=== PATIENT | female | born 1930 | race Caucasian/White ===

== ENCOUNTER 2018-01-14 11:50 | Emergency (ER) | payer OTHER ==
[2018-01-14] MEDS ORDERED: BENZONATATE 100 MG CAP PO ONE (12:36)
[2018-01-14 12:49] LABS: Absolute Lymphocytes (CBC) 0.8 K/uL (0.7-4.9); Absolute Monocytes 1.2 K/uL (0.1-1.3); Absolute Neutrophil 6.5 K/uL (1.8-8.0); Basophils % 0.1 % (0-1.3); Eosinophils % 1.1 % (0-4.4); Hematocrit 33.9 % (36.0-45.0); Lymphocytes % 9.4 % (15.3-44.8); MCH 30.9 pg (27.0-35.0); Monocytes % 13.5 % (3.3-12.3)
[2018-01-14 13:04] LABS: Potassium 3.8 mmol/L (3.5-5.1)
--- NOTE | 2018-01-14 14:13 | ER ---
Nurse's Notes [facility] Name: Virgen Smith Age: 87 yrs Sex: Female : 1930 Arrival Date: 01/14/2018 Time: 11:55 Bed 16 Private MD: Candy العراقي C Diagnosis: Bronchitis, not specified as acute or chronic;Cough;Acute upper respiratory infection, unspecified Presentation: 01/14 12:01 Presenting complaint: Patient states: She drank some eliseo beer on Monday and after aj1 that he throat started to feel hoarse and the next day she started coughing and it has gotten worse every day since. Reports productive cough with green sputum. Denies fever. Denies SOB. Transition of care: patient was not received from another setting of care. Onset of symptoms was December 2017. Risk Assessment: Do you want to hurt yourself or someone else? Patient reports no desire to harm self or others. Initial Sepsis Screen: Does the patient meet any 2 criteria? No. Patient's initial sepsis screen is negative. Does the patient have a suspected source of infection? No. Patient's initial sepsis screen is negative. Care prior to arrival: None. 12:01 Method Of Arrival: Ambulatory aj1 12:01 Acuity: SERGEY 4 aj1 Triage Assessment: 12:06 General: Appears in no apparent distress. comfortable, Behavior is calm, cooperative, aj1 appropriate for age. Pain: Denies pain. Neuro: Level of Consciousness is awake, alert, obeys commands. Cardiovascular: Patient's skin is warm and dry. Respiratory: Airway is patent Respiratory effort is even, unlabored, Respiratory pattern is regular, symmetrical. Historical: - Allergies: 12:10 Sulfa (Sulfonamide Antibiotics); rb1 12:10 PENICILLINS; rb1 12:10 azithromycin; rb1 - Home Meds: 12:06 atorvastatin 10 mg oral tab 1 tab once daily [Active]; gabapentin 100 mg oral cap 3 aj1 caps 3 times per day [Active]; valsartan-hydrochlorothiazide 160-12.5 mg oral tab 1 tab once daily [Active]; metoprolol succinate 50 mg oral Tb24 1 tab once daily [Active]; ibandronate 150 mg oral tab 1 tab [Active]; baclofen 10 mg Oral tab 1 tab [Active]; - PMHx: 12:06 Hypertension; Hyperlipidemia; nerve pain; aj1 - Immunization history:: Flu vaccine is up to date. - Social history:: Smoking status: Patient/guardian denies using tobacco. - Ebola Screening: : Patient denies travel to an Ebola-affected area in the 21 days before illness onset. Screenin:15 Abuse screen: Denies threats or abuse. Nutritional screening: No deficits noted. rb1 Tuberculosis screening: No symptoms or risk factors identified. Fall Risk None identified. Assessment: 12:15 General: Appears uncomfortable, Behavior is calm, cooperative, Reports feeling ill for rb1 fatigue for Denies fever. Pain: Denies pain. Neuro: Level of Consciousness is awake, alert, obeys commands, Oriented to person, place, time, situation. Cardiovascular: Capillary refill < 3 seconds is brisk in bilateral fingers. Respiratory: Reports cough that is productive, since green sputum Airway is patent Respiratory effort is even, unlabored, Respiratory pattern is regular, symmetrical. GI: No signs and/or symptoms were reported involving the gastrointestinal system. : No signs and/or symptoms were reported regarding the genitourinary system. Derm: Skin is pink, warm \T\ dry. Musculoskeletal: Range of motion: intact in all extremities. 13:08 Reassessment: Patient appears in no apparent distress at this time. No changes from rb1 previously documented assessment. X-ray is at bedside. 14:05 Reassessment: Patient appears in no apparent distress at this time. Patient and/or rb1 family updated on plan of care and expected duration. Pain level reassessed. Patient is alert, oriented x 3, equal unlabored respirations, skin warm/dry/pink. Vital Signs: 12:06 BP 174 / 78; Pulse 82; Resp 20; Temp 97.6; Pulse Ox 97% on R/A; Weight 62.14 kg (R); aj1 Height 4 ft. 11 in. (149.86 cm) (R); Pain 0/10; 13:00 BP 142 / 86; Pulse 73; Resp 19; Pulse Ox 95% on R/A; rb1 14:50 BP 160 / 70; Pulse 76; Resp 19; Pulse Ox 96% on R/A; rb1 12:06 Body Mass Index 27.67 (62.14 kg, 149.86 cm) aj ED Course: 11:55 Patient arrived in ED. mr 11:55 Candy العراقي MD is Private Physician. mr 12:03 Triage completed. aj1 12:06 Arm band placed on Patient placed in an exam room. aj1 12:10 Bladimir Dinh MD is Attending Physician. kdr 12:15 Patient has correct armband on for positive identification. Bed in low position. Call rb1 light in reach. Side rails up X 1. Pulse ox on. NIBP on. Warm blanket given. 12:16 Harika Ariaza, ERIC is Primary Nurse. rb1 12:40 Inserted saline lock: 22 gauge in left antecubital area, using aseptic technique. Blood rb1 collected. 13:42 X-ray completed. Portable x-ray completed in exam room. Patient tolerated procedure tm4 well. 13:44 CXR XRAY In Process Unspecified. EDMS 14:11 Candy العراقي MD is Referral Physician. kdr 14:50 No provider procedures requiring assistance completed. IV discontinued, intact, rb1 bleeding controlled, No redness/swelling at site. Pressure dressing applied. Administered Medications: 12:30 Drug: Tessalon Perle 200 mg Route: PO; rb1 13:00 Follow up: Response: No adverse reaction rb1 14:37 Drug: LevaQUIN 500 mg Route: PO; rb1 14:50 Follow up: Response: No adverse reaction rb1 Outcome: 14:12 Discharge ordered by MD. kdr 14:50 Patient left the ED. rb1 14:50 Discharged to home ambulatory. rb1 14:50 Condition: stable 14:50 Discharge instructions given to patient, Instructed on discharge instructions, follow up and referral plans. medication usage, Demonstrated understanding of instructions, follow-up care, medications, Prescriptions given X 2. Signatures: Dispatcher [employer] EDWI Lynn Giang RN RN aj1 Bladimir Dinh MD MD [facility] Kristal Ponce tm4 Harika Araiza, RN RN rb1 Corrections: (The following items were deleted from the chart) 12:53 12:06 Allergies: NKDA; aj1 rb1 15:00 14:59 Patient left the ED. rb1 rb1
--- NOTE | 2018-01-14 14:13 | EDPHYS ---
Physician Documentation [facility] Name: Virgen Smith Age: 87 yrs Sex: Female : 1930 Arrival Date: 01/14/2018 Time: 11:55 Bed 16 Private MD: Candy العراقي C ED Physician Bladimir Dinh HPI: 01/14 15:21 This 87 yrs old Female presents to ER via Ambulatory with complaints of Cough.kdr 15:21 The patient or guardian reports cough, that is intermittent, described as mild, with kdr productive sputum, that is green. Onset: The symptoms/episode began/occurred gradually, Began Monday. Severity of symptoms: At their worst the symptoms were mild, moderate, just prior to arrival, in the emergency department the symptoms are actually worse. Modifying factors: The symptoms are alleviated by nothing, the symptoms are aggravated by. 15:25 Associated signs and symptoms: The patient has no apparent associated signs or kdr symptoms, Pertinent negatives: fever, nausea, sore throat, vomiting. The patient has not experienced similar symptoms in the past. The patient has not recently seen a physician. Historical: - Allergies: 12:10 Sulfa (Sulfonamide Antibiotics); rb1 12:10 PENICILLINS; rb1 12:10 azithromycin; rb1 - Home Meds: 12:06 atorvastatin 10 mg oral tab 1 tab once daily [Active]; gabapentin 100 mg oral cap 3 aj1 caps 3 times per day [Active]; valsartan-hydrochlorothiazide 160-12.5 mg oral tab 1 tab once daily [Active]; metoprolol succinate 50 mg oral Tb24 1 tab once daily [Active]; ibandronate 150 mg oral tab 1 tab [Active]; baclofen 10 mg Oral tab 1 tab [Active]; - PMHx: 12:06 Hypertension; Hyperlipidemia; nerve pain; aj1 - Immunization history:: Flu vaccine is up to date. - Social history:: Smoking status: Patient/guardian denies using tobacco. - Ebola Screening: : Patient denies travel to an Ebola-affected area in the 21 days before illness onset. ROS: 15:25 Constitutional: Negative for fever, chills, and weight loss, Eyes: Negative for injury, kdr pain, redness, and discharge, Neck: Negative for injury, pain, and swelling, Cardiovascular: Negative for chest pain, palpitations, and edema, Abdomen/GI: Negative for abdominal pain, nausea, vomiting, diarrhea, and constipation, Back: Negative for injury and pain, : Negative for injury, bleeding, discharge, and swelling, MS/Extremity: Negative for injury and deformity, Skin: Negative for injury, rash, and discoloration, Neuro: Negative for headache, weakness, numbness, tingling, and seizure activity. Psych: Negative for depression, anxiety, suicide ideation, homicidal ideation, and hallucinations, Allergy/Immunology: Negative for hives, rash, and allergies, Endocrine: Negative for neck swelling, polydipsia, polyuria, polyphagia, and marked weight changes, Hematologic/Lymphatic: Negative for swollen nodes, abnormal bleeding, and unusual bruising. 15:25 Respiratory: Positive for cough, with green sputum, dyspnea on exertion, shortness of breath, Negative for hemoptysis, orthopnea, pleurisy, wheezing. Exam: 15:25 Constitutional: This is a well developed, well nourished patient who is awake, alert, kdr and in no acute distress. Head/Face: Normocephalic, atraumatic. Eyes: Pupils equal round and reactive to light, extra-ocular motions intact. Lids and lashes normal. Conjunctiva and sclera are non-icteric and not injected. Cornea within normal limits. Periorbital areas with no swelling, redness, or edema. Neck: Trachea midline, no thyromegaly or masses palpated, and no cervical lymphadenopathy. Supple, full range of motion without nuchal rigidity, or vertebral point tenderness. No Meningismus. Chest/axilla: Normal chest wall appearance and motion. Nontender with no deformity. No lesions are appreciated. Cardiovascular: Regular rate and rhythm with a normal S1 and S2. No gallops, murmurs, or rubs. Normal PMI, no JVD. No pulse deficits. Respiratory: Lungs have equal breath sounds bilaterally, clear to auscultation and percussion. No rales, rhonchi or wheezes noted. No increased work of breathing, no retractions or nasal flaring. Abdomen/GI: Soft, non-tender, with normal bowel sounds. No distension or tympany. No guarding or rebound. No evidence of tenderness throughout. Back: No spinal tenderness. No costovertebral tenderness. Full range of motion. Skin: Warm, dry with normal turgor. Normal color with no rashes, no lesions, and no evidence of cellulitis. MS/ Extremity: Pulses equal, no cyanosis. Neurovascular intact. Full, normal range of motion. Neuro: Awake and alert, GCS 15, oriented to person, place, time, and situation. Cranial nerves II-XII grossly intact. Motor strength 5/5 in all extremities. Sensory grossly intact. Cerebellar exam normal. Normal gait. Psych: Awake, alert, with orientation to person, place and time. Behavior, mood, and affect are within normal limits. Vital Signs: 12:06 BP 174 / 78; Pulse 82; Resp 20; Temp 97.6; Pulse Ox 97% on R/A; Weight 62.14 kg (R); aj1 Height 4 ft. 11 in. (149.86 cm) (R); Pain 0/10; 13:00 BP 142 / 86; Pulse 73; Resp 19; Pulse Ox 95% on R/A; rb1 14:50 BP 160 / 70; Pulse 76; Resp 19; Pulse Ox 96% on R/A; rb1 12:06 Body Mass Index 27.67 (62.14 kg, 149.86 cm) aj1 MDM: 14:12 Patient medically screened. kdr 15:25 Data reviewed: vital signs, nurses notes, lab test result(s), radiologic studies. kdr Counseling: I had a detailed discussion with the patient and/or guardian regarding: the historical points, exam findings, and any diagnostic results supporting the discharge/admit diagnosis, lab results, radiology results, the need for outpatient follow up. 01/14 12:26 Order name: CBC with Diff; Complete Time: 14:05 kdr 01/14 12:26 Order name: Chem 7; Complete Time: 14:05 kdr 01/14 12:26 Order name: CXR XRAY kdr Administered Medications: 12:30 Drug: Tessalon Perle 200 mg Route: PO; rb1 13:00 Follow up: Response: No adverse reaction rb1 14:37 Drug: LevaQUIN 500 mg Route: PO; rb1 14:50 Follow up: Response: No adverse reaction rb1 Disposition: 01/14/18 14:12 Discharged to Home. Impression: Bronchitis, not specified as acute or chronic, Cough, Acute upper respiratory infection, unspecified. - Condition is Stable. - Discharge Instructions: Upper Respiratory Infection, Adult, Acute Bronchitis, [id number], Cough, Adult, [id number]. - Prescriptions for Levaquin 500 mg Oral Tablet - take 1 tablet by ORAL route once daily for 7 days; 7 tablet. Tessalon Perles 100 mg Oral Capsule - take 1 capsule by ORAL route every 8 hours As needed; 15 capsule. - Medication Reconciliation Form, Thank You Letter, Antibiotic Education form. - Follow up: Candy العراقي MD; When: 1 - 2 days; Reason: If symptoms return, Further diagnostic work-up, Recheck today's complaints, Continuance of care, Re-evaluation by your physician. - Problem is new. - Symptoms have improved. Signatures: Dispatcher [employer] EDMS Lynn Giang RN RN aj1 Bladimir Dinh MD MD kdr Barber, Rebecca, RN RN rb1 Corrections: (The following items were deleted from the chart) 12:53 12:06 Allergies: NKDA; aj1 rb1 14:59 14:12 01/14/2018 14:12 Discharged to Home. Impression: Bronchitis, not specified as rb1 acute or chronic; Cough; Acute upper respiratory infection, unspecified. Condition is Stable. Forms are Medication Reconciliation Form, Thank You Letter, Antibiotic Education, Prescription Opioid Use. Follow up: Candy العراقي; When: 1 - 2 days; Reason: If symptoms return, Further diagnostic work-up, Recheck today's complaints, Continuance of care, Re-evaluation by your physician. Problem is new. Symptoms have improved. kdr
[2018-01-14] MEDS ORDERED: levoFLOXacin 500 MG TAB ONE (14:47)
--- NOTE | 2018-01-14 18:22 | RAD REPORT ---
EXAM DESCRIPTION: RAD - Chest Single View - 01/14/2018 1:44 pm CLINICAL HISTORY: Cough and congestion, shortness of breath COMPARISON: 2003 TECHNIQUE: AP portable chest image was obtained 1308 hours . FINDINGS: No peripheral mass or consolidations seen. Patient has densely calcified breast implants t hat limit lung base assessment. There is some patchy opacification suspected in each base. Significan t failure or volume overload are not suspected. Heart and vasculature are normal. No measurable pleur al effusion and no pneumothorax. No acute bony abnormality seen. No acute aortic findings suspected. IMPRESSION: Suspected small bilateral lung base pneumonias obscured by dense calcified breast implan t capsules.
== END 2018-01-14 14:59 | disposition home or self-care (01) ==
LOC: ER 11:50
DX: J40 Bronchitis, not specified as acute or chronic (principal); J06.9 Acute upper respiratory infection, unspecified; I10 Essential (primary) hypertension; E78.5 Hyperlipidemia, unspecified; Z88.2 Allergy status to sulfonamides; Z88.0 Allergy status to penicillin; Z88.3 Allergy status to other anti-infective agents
CPT/HCPCS: 36415; 71045; 80048; 85025; 99284